=== PATIENT | male | born 1965 | race Two or more races ===

== ENCOUNTER 2017-03-11 03:03 | Emergency (ER) | payer MEDICARE, MEDICAID ==
[~2017-03-11] VITALS: Ht 177.8 cm; Wt 83.9 kg
[~2017-03-11 03:03] MED LIST: ALLO300T2; NOR10T; PANTPAK; TEMA30CA5
[2017-03-11 03:55] VITALS: BP 127/71
== END 2017-03-11 04:33 | disposition home or self-care (01) ==
LOC: ER 03:04
DX: N40.0 Benign prostatic hyperplasia without lower urinary tract symptoms (principal); Z76.0 Encounter for issue of repeat prescription; M10.9 Gout, unspecified; I10 Essential (primary) hypertension; F17.210 Nicotine dependence, cigarettes, uncomplicated; Z79.899 Other long term (current) drug therapy

== ENCOUNTER 2017-06-18 13:40 | Emergency (ER) | payer MEDICARE, MEDICAID ==
[~2017-06-18] VITALS: Ht 170.2 cm; Wt 90.7 kg
[2017-06-18] MEDS ORDERED: SODIUM BICARBONATE 8.4% INJ 50ML SYRINGE IV ONE (13:41)
[2017-06-18] MEDS ORDERED: EPINEPHrine HCL 1 MG/10 ML SYRG IV ONE (13:41)
[2017-06-18] MEDS ORDERED: CALCIUM CHLOR(10%) 100MG/ML 10ML SYRINGE IV ONE (13:41)
== END 2017-06-18 18:17 | disposition expired ==
LOC: EDBD 13:40 → ER 13:40
DX: I46.9 Cardiac arrest, cause unspecified (principal); K91.82 Postprocedural hepatic failure; N99.0 Postprocedural (acute) (chronic) kidney failure; F17.210 Nicotine dependence, cigarettes, uncomplicated
CPT/HCPCS: 71010; 92950; 99285; J0171